=== PATIENT | female | born 1965 | race Caucasian/White ===

== ENCOUNTER 2024-01-04 05:57 | Day surgery (SDC) | payer OTHER ==
[2024-01-04 06:20] VITALS: RESP 16
[2024-01-04] MEDS: Lactated Ringers 1,000 ML IV SCH (06:23)
[2024-01-04] MEDS ORDERED: DIPRIVAN 200 MG/20 ML IV ONE ×2 (07:40→08:00)
[2024-01-04 08:49] VITALS: BP 117/67; PULSE 56; TEMP 96.9; O2SAT 100
--- NOTE | 2024-01-05 11:54 | OP ---
SURGERY DATE/TIME: 01/04/2024 9415 - [id number] PREOPERATIVE DIAGNOSIS: Screening colonoscopy. POSTOPERATIVE DIAGNOSIS: Normal colon. PROCEDURE PERFORMED: Colonoscopy. SURGEON: Abelino Birch MD ANESTHESIA: MAC by PARI Best. ESTIMATED BLOOD LOSS: None. SPECIMENS: None. DESCRIPTION OF PROCEDURE AND FINDINGS: After informed written consent was obtained, the patient was taken to the endoscopy suite. She was placed in the left lateral decubitus position and anesthesia was titrated to the desired level of consciousness. Digital rectal exam showed normal sphincter tone and no internal lesions. The scope was inserted in the rectum, and sequentially the entire colonic mucosa was traversed. The level of the cecum was reached and verified with direct visualization of the ileocecal valve. Upon withdrawal, careful mucosal inspection revealed no gross abnormalities other than some scattered diverticula. Prior to withdrawal, retroflexion was performed, showed no internal lesions. Scope was removed and patient was transferred to the recovery room in good condition. She has been advised routine 10-year followup.
== END 2024-01-04 08:57 | disposition home or self-care (01) ==
LOC: SDC 05:57
PROVIDERS: ATTEND Family Medicine
DX: Z12.11 Encounter for screening for malignant neoplasm of colon (principal)
CPT/HCPCS: J2704